=== PATIENT | male | born 1990 | race Caucasian/White ===

== ENCOUNTER 2018-08-17 20:52 | Inpatient (IN) | payer OTHER, MEDICAID | END 2018-08-18 22:08 | disposition left against medical advice (07) | LOC: ED HOLD 08-18 20:51 → ER 20:52 ==

== ENCOUNTER 2024-04-04 09:47 | Emergency (ER) | payer MEDICAID ==
[~2024-04-04] VITALS: Ht 180.3 cm; Wt 84.9 kg
[~2024-04-04 09:47] MED LIST: NO HOME MEDS
[2024-04-04 09:50] VITALS: TEMP 98.1
[2024-04-04 10:40] VITALS: BP 132/76; PULSE 88; RESP 16; O2SAT 98
== END 2024-04-04 12:40 | disposition left against medical advice (07) ==
LOC: ER 09:48
DX: S01.81XA Laceration without foreign body of other part of head, initial encounter (principal); Z53.21 Procedure and treatment not carried out due to patient leaving prior to being seen by health care provider; Z88.8 Allergy status to other drugs, medicaments and biological substances; W26.8XXA Contact with other sharp object(s), not elsewhere classified, initial encounter; Y93.89 Activity, other specified; Y92.89 Other specified places as the place of occurrence of the external cause; Y99.8 Other external cause status